=== PATIENT | female | born 1945 | race Caucasian/White ===

== ENCOUNTER → 2020-08-27 | Outpatient (CLI) | payer MEDICARE | END | disposition home or self-care (01) | LOC: CFH 08:02 | PROVIDERS: ATTEND Internal Medicine | DX: Z12.31 Encounter for screening mammogram for malignant neoplasm of breast (principal) | CPT/HCPCS: 77063; 77067 ==

== ENCOUNTER → 2020-09-18 | Outpatient (CLI) | payer MEDICARE | END | disposition home or self-care (01) | LOC: CVU 07:24 | PROVIDERS: ATTEND Psychiatry & Neurology Neurology | DX: I08.8 Other rheumatic multiple valve diseases (principal); I63.9 Cerebral infarction, unspecified; R47.01 Aphasia | CPT/HCPCS: 93306 ==

== ENCOUNTER 2020-09-29 17:02 | Emergency (ER) | payer MEDICARE ==
[~2020-09-29] VITALS: Ht 165.1 cm; Wt 57.3 kg
--- NOTE | 2020-09-29 18:07 | NUR ---
cancer genetics assistant: Pt ambulatory to room from lobby at this time.
--- NOTE | 2020-09-29 18:47 | NUR ---
PT OFF THE FLOOR TO XRAY.
--- NOTE | 2020-09-29 19:13 | NUR ---
RECEIEVED REPORT FROM LALO TESFAYE. TRANSFER OF CARE
[2020-09-29] MEDS ORDERED: KETOROLAC 60 MG/2 ML ONE (19:19)
[2020-09-29 19:22] VITALS: BP 184/69
--- NOTE | 2020-09-29 19:23 | NUR ---
Patient is resting comfortably in bed IN HIGH FOWLERS POSITION. Bed in lowest, rails engaged, call light on lap. Vital Signs within normal limits. WCTM. FRIEND AT BEDSIDE.
[2020-09-29] MEDS ORDERED: KETOROLAC 30 MG/1 ML IM ONE (19:30)
[2020-09-29] MEDS ORDERED: KETOROLAC 30 MG/1 ML ONE (19:31)
--- NOTE | 2020-09-29 20:09 | NUR ---
Patient is resting comfortably in bed. Bed in lowest, rails engaged, call light on lap. Vital Signs within normal limits. WCTM.
== END 2020-09-29 20:12 | disposition home or self-care (01) ==
LOC: ED 17:32
DX: S22.080A Wedge compression fracture of T11-T12 vertebra, initial encounter for closed fracture (principal); M54.2 Cervicalgia; R51.9 Headache, unspecified; W01.0XXA Fall on same level from slipping, tripping and stumbling without subsequent striking against object, initial encounter; Y93.89 Activity, other specified; Y92.410 Unspecified street and highway as the place of occurrence of the external cause; Y99.8 Other external cause status
CPT/HCPCS: 70450; 72072; 72110; 72125; 96372; 99285; J1885

== ENCOUNTER → 2020-11-26 | Outpatient (CLI) | payer MEDICARE | END | disposition home or self-care (01) | LOC: CFH 08:00 | PROVIDERS: ATTEND Psychiatry & Neurology Neurology | DX: R47.01 Aphasia (principal); R47.1 Dysarthria and anarthria | CPT/HCPCS: 92523-GN ==

== ENCOUNTER → 2021-01-14 | Outpatient (CLI) | payer MEDICARE | END | disposition home or self-care (01) | LOC: CFH 09:00 → EDSTATUS 10:00 | PROVIDERS: ATTEND Psychiatry & Neurology Neurology | DX: I63.9 Cerebral infarction, unspecified (principal); R47.01 Aphasia | CPT/HCPCS: 70549; 70553; A9575 ==